=== PATIENT | female | born 1995 | race Caucasian/White ===

== ENCOUNTER → 2018-11-27 18:20 | Outpatient (CLI) | payer BC, SELFPAY ==
[2018-11-30 18:34] LABS: Neisseria gonorrhoeae, NAA Negative (Negative)
== END ==
PROVIDERS: Visit Provider Nurse Practitioner Obstetrics & Gynecology
DX: N93.9 Abnormal uterine and vaginal bleeding, unspecified (principal)
CPT/HCPCS: 87491; 87591

== ENCOUNTER → 2020-01-07 12:20 | Outpatient (CLI) | payer BC, SELFPAY ==
[2020-01-07 13:28] LABS: HCG,Quantitative < 2 mIU/ml (0-5.42)
== END ==
PROVIDERS: Visit Provider Nurse Practitioner Obstetrics & Gynecology
DX: Z34.90 Encounter for supervision of normal pregnancy, unspecified, unspecified trimester (principal)
CPT/HCPCS: 36415; 84702